=== PATIENT | male | born 1965 | race Caucasian/White ===

== ENCOUNTER 2021-04-14 11:25 | Day surgery (SDC) | payer OTHER ==
[~2021-04-14] VITALS: Ht 175.3 cm; Wt 100.0 kg
[~2021-04-14 11:25] MED LIST: RINGERS SOLUTION,LACTATED 1,000 ML IV ONE
[2021-04-14] MEDS ORDERED: ACETAMINOPHEN/ISO-OSM 1000 MG/100 ML BOTTLE IV ONE (11:26)
[2021-04-14] MEDS ORDERED: SUGAMMADEX SODIUM 200 MG/2 ML VIAL IVP ONE ×2 (11:26→14:50)
[2021-04-14] MEDS ORDERED: KETOROLAC TROMETHAMINE 60 MG/2 ML VIAL IM ONE (11:26)
[2021-04-14] MEDS ORDERED: LIDOCAINE/PF 2% 5 ML SYRINGE IVP ONE (11:26)
[2021-04-14] MEDS ORDERED: ROCURONIUM BROMIDE 10 MG/ML 5 ML VIAL IVP ONE (11:26)
[2021-04-14] MEDS ORDERED: ONDANSETRON HCL 4 MG/2 ML VIAL IVP ONE (11:26)
[2021-04-14] MEDS ORDERED: FentaNYL CITRATE PF 100 MCG/2 ML VIAL IM ONE (11:26)
[2021-04-14] MEDS ORDERED: CefoTEtan DISODIUM 1 GM/VIAL IVP ONE (11:26)
[2021-04-14] MEDS ORDERED: PROPOFOL 1% 20 ML VIAL IVP ONE (11:26)
[2021-04-14] MEDS ORDERED: METOCLOPRAMIDE HCL 5 MG/ML 2 ML VIAL IVP ONE (11:26)
[2021-04-14] MEDS ORDERED: FentaNYL CITRATE PF 100 MCG/2 ML VIAL IVP ONE (11:26)
[2021-04-14] MEDS ORDERED: DEXAMETHASONE SOD PHOS 4 MG/ML VIAL IVP ONE (11:26)
[2021-04-14] MEDS ORDERED: MIDAZOLAM HCL 2 MG/2 ML VIAL IVP ONE ×2 (11:26)
[2021-04-14] MEDS ORDERED: KETOROLAC TROMETHAMINE 30 MG/ML VIAL IM ONE (11:45)
[2021-04-14] MEDS ORDERED: MORPHINE SULFATE/PF 0.5 MG/ML 10 ML AMP IVP ONE (11:45)
[2021-04-14 12:13] LABS: BASOPHILS % (AUTO) 0.6 % (0.0-2.0); EOSINOPHILS % (AUTO) 2.9 % (1.0-6.0); HEMOGLOBIN 14.9 g/dL (13.5-17.5); LYMPHOCYTES # (AUTO) 1.4 K/uL (1.0-4.8); LYMPHOCYTES % (AUTO) 16.5 % (22.0-44.0); MEAN CORPUSCULAR HEMOGLOBIN 30.5 pg (26.0-34.0); MEAN CORPUSCULAR HGB CONC 33.2 G/dL (31.0-37.0); MEAN CORPUSCULAR VOLUME 92 fL (80-100); MONOCYTES # (AUTO) 0.6 K/uL (0.1-1.0); MONOCYTES % (AUTO) 7.4 % (2.0-9.0); NEUTROPHILS % (AUTO) 72.6 % (40.0-70.0); PLATELET COUNT (AUTO) 174 K/uL (150-450); RED BLOOD CELL COUNT(AUTO) 4.89 MIL/uL (4.50-5.90); RED CELL DISTRIBUTION WIDTH 12.9 % (11.5-14.5)
[2021-04-14 12:17] LABS: ANION GAP 8 mmol/L (8-16); CALCIUM, TOTAL 8.7 mg/dL (8.8-10.5); CARBON DIOXIDE 26 mmol/L (22-29); CHLORIDE 106 mmol/L (98-107); CREATININE 0.97 mg/dL (0.60-1.30); GLOMERULAR FILTR. RATE CALC > 60 mL/min (>60); GLUCOSE,RANDOM 105 mg/dL (70-110); POTASSIUM 4.1 mmol/L (3.5-5.1); SODIUM SERUM 140 mmol/L (136-145); UREA NITROGEN, BLOOD 22 mg/dL (7-18)
[2021-04-14 12:22] LABS: PROTHROMBIN TIME 10.6 SEC (9.4-11.6)
[2021-04-14 12:24] LABS: ALANINE AMINOTRANSFERASE 22 U/L (12-78); ALBUMIN 4.1 g/dL (3.4-5.0); ALKALINE PHOSPHATASE 62 U/L (46-116); ASPARTATE AMINOTRANSFERASE 16 U/L (15-37); BILIRUBIN,TOTAL 0.3 mg/dL (0.1-1.0); TOTAL PROTEIN, SERUM 7.4 g/dL (6.4-8.2)
[2021-04-14] MEDS ORDERED: BUPIVACAINE/EPI/PF 0.5% 30 ML VIAL ONE (13:15)
[2021-04-14] MEDS ORDERED: EPINEPHrine 1:1,000 [1 MG/ML] AMP ONE (13:17)
[2021-04-14] MEDS ORDERED: KETOROLAC TROMETHAMINE 30 MG/ML VIAL ONE (13:20)
[2021-04-14] MEDS ORDERED: ACETAMINOPHEN 1000 MG/ISO-OSM 100 ML IV ONE (14:17)
[2021-04-14 14:18] LABS: COVID AG,FIA SOURCE NASOPHARYNGEAL
[2021-04-14] MEDS ORDERED: ROPIVACAINE HCL/PF 0.2% 100 ML ED ONE (14:33)
[2021-04-14] MEDS ORDERED: FentaNYL CITRATE PF 100 MCG/2 ML VIAL IVP PRN (14:45)
[2021-04-14] MEDS ORDERED: HYDROmorphone 2 MG/ML VIAL IVP PRN (14:45)
[2021-04-14] MEDS ORDERED: HYDROmorphone 2 MG/ML VIAL ONE (15:53)
[2021-04-14] MEDS ORDERED: OXYGEN THERAPY IH SCH (20:00)
== END 2021-04-14 17:30 | disposition home or self-care (01) ==
LOC: SURGERY 11:25
PROVIDERS: ATTEND Orthopaedic Surgery
DX: S46.012A Strain of muscle(s) and tendon(s) of the rotator cuff of left shoulder, initial encounter (principal); M25.812 Other specified joint disorders, left shoulder; M94.212 Chondromalacia, left shoulder; S43.492A Other sprain of left shoulder joint, initial encounter; S46.212A Strain of muscle, fascia and tendon of other parts of biceps, left arm, initial encounter; X58.XXXA Exposure to other specified factors, initial encounter; F12.90 Cannabis use, unspecified, uncomplicated; Z91.018 Allergy to other foods; Y93.89 Activity, other specified; Y92.89 Other specified places as the place of occurrence of the external cause; Y99.8 Other external cause status; G89.18 Other acute postprocedural pain; Z79.01 Long term (current) use of anticoagulants; Z79.899 Other long term (current) drug therapy; Z98.890 Other specified postprocedural states
CPT/HCPCS: 23430; 29823; 29826; 36415; 64415; 76942; 80053; 85025; 85610; 85730; 87426; A9575; C1713; C9803; J0131; J0171; J1100; J1170; J1885; J2250; J2405; J2704; J2765; J2795; J3010; J3490 ×4; J7120; J2274